=== PATIENT | male | born 1950 | race American Indian/Alaskan Native ===

== ENCOUNTER 2019-04-10 06:34 | Day surgery (SDC) | payer BC, OTHER, MEDICARE ==
[~2019-04-10 06:34] MED LIST: Dextrose 5%-0.45% NaCl 1,000 ML IV SCH; Midazolam 1 MG/ML 2 ML SDV ONE; Sodium Chloride 0.9% 10 ML Syringe FLUSH PRN; fentaNYL 100 MCG/2 ML SDV ONE
[2019-04-10] MEDS ORDERED: fentaNYL 100 MCG/2 ML SDV IV ONE ×3 (06:35→07:48)
[2019-04-10] MEDS ORDERED: Midazolam 1 MG/ML 2 ML SDV IV ONE ×7 (06:35→07:57)
[2019-04-10 10:38] VITALS: BP 120/77; PULSE 78
--- NOTE | 2019-04-10 14:41 | OR ---
DATE: 04/10/2019 PROCEDURE PERFORMED: Total colonoscopy, NBI, and cold snare polypectomy. INSTRUMENT USED: CF-TO476P Olympus video colonoscope. PREMEDICATIONS: Fentanyl 100 mcg intravenous, Versed 3.5 mg intravenous. Nasal O2 cannula. The procedure was done under pulse oximetry, BP recording, and yield loss inspector. INDICATIONS: The patient with previous colonic tubular adenoma and recently detected iron-deficiency anemia. Colonoscopic examination is done for detection of any polypoid lesions and removal, endoscopic hemostasis therapy if needed. DESCRIPTION OF PROCEDURE: Initial rectal exam was unremarkable. Rigid anoscopy was normal. The colonoscope was passed with ease up to the ileocecal area. Photographs were taken of the normal-appearing cecum, identified by landmarks of appendiceal orifice and double-bulged ileocecal folds. No bleeding was noted from any of the visualized areas at the commencement of the examination. Bowel preparation was found to be adequate, [place] scale 2 in all the regions. There was considerable amount of liquid fecal material that had to be aspirated. No stricture, no vascular ectasia, and no large isolated ulcerations seen. No evidence of diffuse inflammatory bowel disease in the form of friability, contact bleeding, or ulcerations. Probing the proximal sides of folds and flexures using adequate distention and clearing up the stool material, withdrawal of the scope was made. In the distal descending colon, 5 mm sized benign-appearing polyp was noted, NBI views were obtained, cold snare polypectomy was done, the tissue was retrieved, and sent for histopathology. No bleeding was noted from any of the visualized areas at the completion of examination. IMPRESSION: Descending colon polyp. The patient tolerated the procedure well. [facility] /[id number]
--- NOTE | 2019-04-15 10:06 | LETTER ---
04/10/2019 Ava Lipscomb MD [address] [place] [address] RE: RAUL MAY : [address] Lipscomb: Mr. Raul May had colonoscopic examination done this morning and he tolerated the procedure well. I herewith send a copy of the endoscopy note and photographs for your review. Thank you. Sincerely, [facility] /[id number]
== END 2019-04-10 10:12 | disposition home or self-care (01) ==
LOC: DL.ENDO 06:34
PROVIDERS: ATTEND Internal Medicine Gastroenterology
DX: D50.9 Iron deficiency anemia, unspecified (principal); D12.4 Benign neoplasm of descending colon; K21.9 Gastro-esophageal reflux disease without esophagitis; E78.5 Hyperlipidemia, unspecified; E11.9 Type 2 diabetes mellitus without complications; J45.909 Unspecified asthma, uncomplicated; E66.09 Other obesity due to excess calories; Z68.31 Body mass index [BMI] 31.0-31.9, adult; Z86.010 Personal history of colon polyps; Z79.84 Long term (current) use of oral hypoglycemic drugs
CPT/HCPCS: 45385; J2250; J3010; J7042

== ENCOUNTER 2022-11-15 01:12 | Inpatient (IN) | payer BC, OTHER ==
[~2022-11-15 01:12] MED LIST changes: -Dextrose 5%-0.45% NaCl 1,000 ML IV SCH; -Midazolam 1 MG/ML 2 ML SDV ONE; -fentaNYL 100 MCG/2 ML SDV ONE
[2022-11-15] MEDS ORDERED: Acetaminophen 325 MG Tab PO ONE (01:19)
[2022-11-15] MEDS ORDERED: Lactated Ringers 1,000 ML IV ONE (01:22)
[2022-11-15] MEDS ORDERED: cefTRIAXone 1 GM Vial IM ONE (01:23)
[2022-11-15 01:25] LABS: BASOPHILS PERCENT AUTO 0.2 % (0.0-1.0); EOSINOPHILS PERCENT AUTO 0.6 % (1.0-3.0); LYMPHOCYTES PERCENT AUTO 7.3 % (20.5-50.1); MEAN CORPUSCULAR HEMOGLOBIN 27.6 pg (27.0-34.0); MEAN CORPUSCULAR HGB CONC 33.3 g/dL (33.0-35.0); MEAN CORPUSCULAR VOLUME 82.9 fL (80-100); MONOCYTES PERCENT AUTO 5.1 % (2-8); NEUTROPHILS PERCENT AUTO 86.8 % (42.2-75.2); PLATELET COUNT,PLT 402 10^3/uL (150-450); RED BLOOD CELL COUNT 4.34 10^6/uL (4.6-6.2); WHITE BLOOD CELL COUNT,WBC 19.3 10^3/uL (5.0-10.0)
[2022-11-15] MEDS ORDERED: Levofloxacin/Dextrose 5%-Water 750 MG in Premix Bag 1 BAG IV ONE (01:29)
[2022-11-15] MEDS ORDERED: cefTRIAXone 1 GM Vial IVPUSH ONE (01:43)
[2022-11-15 01:49] LABS: PROTHROMBIN TIME 10.5 SEC (9.0-12.0)
[2022-11-15 01:52] LABS: A/G RATIO 0.7; ALANINE AMINOTRANSFERASE,ALT 29 U/L (16-63); ALBUMIN 3.6 g/dL (3.4-5.0); ALKALINE PHOSPHATASE 100 U/L (46-116); ANION GAP 12.2 mEq/L (7-13); ASPARTATE AMNIOTRANSFERASE,AST 21 U/L (15-37); BILIRUBIN TOTAL 0.6 mg/dL (0.2-1.0); BLOOD UREA NITROGEN,BUN 13 mg/dL (7-18); BUN/CREATININE RATIO 11.8 (No establ ref range); CALCIUM 8.6 mg/dL (8.5-10.1); CARBON DIOXIDE,CO2 26 mmol/L (21-32); CHLORIDE,CL 94 mmol/L (98-107); GLUCOSE RANDOM 171 mg/dL (70-99); MAGNESIUM 1.5 mg/dL (1.8-2.4); POTASSIUM,K 4.2 mmol/L (3.5-5.1); PROTEIN TOTAL,TP 8.5 g/dL (6.4-8.2); SODIUM,NA 128 mmol/L (136-145)
[2022-11-15 01:53] LABS: ESTIMATED GFR 71 mL/min (>=60); LACTIC ACID 1.6 mmol/L (0.4-2.0)
[2022-11-15 02:05] LABS: B-TYPE NATRIURETIC PEPTIDE,BNP 6 pg/ml (0-100)
[2022-11-15 02:27] LABS: APPEARANCE,URINE CLEAR (CLEAR); BILIRUBIN,URINE NEGATIVE (NEGATIVE); COLOR,URINE YELLOW (YELLOW); GLUCOSE,URINE NEGATIVE (NEGATIVE); KETONES,URINE NEGATIVE (NEGATIVE); LEUKOCYTE ESTERASE,URINE NEGATIVE (NEGATIVE); NITRITE,URINE NEGATIVE (NEGATIVE); OCCULT BLOOD,URINE TRACE-INTACT (NEGATIVE); PH,URINE 7.5 (5.0-9.0); PROTEIN,URINE NEGATIVE (NEGATIVE)
[2022-11-15 02:28] LABS: BACTERIA,URINE FEW /HPF (0-FEW/HPF); EPITHELIAL CELLS,URINE RARE /HPF (NOT SEEN); RBC,URINE 0-5 /HPF (0-5); WBC,URINE NOT SEEN /HPF (0-5/HPF)
[2022-11-15] MEDS ORDERED: Ondansetron 4 MG Tab.DIS PO PRN (03:15)
[2022-11-15] MEDS ORDERED: Albuterol 6.7 GM Inhaler INH PRN (03:20)
[2022-11-15] MEDS: Albuterol 0.083% 2.5 MG/3 ML Neb Soln NEB PRN ×3 (06:07→21:06)
[2022-11-15] MEDS: Omeprazole 20 MG Cap.CR PO SCH (06:07)
[2022-11-15] MEDS ORDERED: Magnesium Oxide 400 MG Tab PO ONE (07:10)
[2022-11-15] MEDS ORDERED: 50% Dextrose in Water 50 ML Syringe IVPUSH PRN (07:42)
[2022-11-15] MEDS ORDERED: Glucagon,Human Recombinant 1 MG Vial IM PRN (07:42)
[2022-11-15] MEDS: Enoxaparin 40 MG/0.4 ML Syringe SUBCUT SCH (08:00)
[2022-11-15] MEDS ORDERED: metFORMIN 500 MG Tab PO SCH (08:00)
[2022-11-15] MEDS: Fluticasone NASAL Spray 16 GM Bottle NASBOTH SCH (08:00)
[2022-11-15] MEDS ORDERED: Insulin Lispro 100 Units/ML 3 ML Vial SUBCUT PRN (08:00)
[2022-11-15] MEDS: Multivitamin Tab PO SCH (08:01)
[2022-11-15] MEDS ORDERED: Iopamidol 755 Mg/ML 100 ML Bottle IVPUSH ONE (08:13)
[2022-11-15] MEDS: guaiFENesin 600 MG Tab.ER PO SCH ×2 (11:00→20:58)
[2022-11-15] MEDS: Acetaminophen 325 MG Tab PO PRN (12:22)
[2022-11-15] MEDS ORDERED: Magnesium Sulfate/Water 2 GM in Premix Bag 1 BAG IV ONE (16:56)
[2022-11-15] MEDS: Montelukast 10 MG Tab PO SCH (20:57)
[2022-11-16] MEDS: Albuterol 0.083% 2.5 MG/3 ML Neb Soln NEB PRN ×6 (02:00→23:01)
[2022-11-16] MEDS: Omeprazole 20 MG Cap.CR PO SCH (05:08)
[2022-11-16] MEDS ORDERED: Levofloxacin/Dextrose 5%-Water 750 MG in Premix Bag 1 BAG IV SCH (06:00)
[2022-11-16 06:35] LABS: BASOPHILS PERCENT AUTO 0.1 % (0.0-1.0); EOSINOPHILS PERCENT AUTO 0.5 % (1.0-3.0); HEMATOCRIT 33.7 % (40.0-54.0); LYMPHOCYTES PERCENT AUTO 8.9 % (20.5-50.1); MEAN CORPUSCULAR HEMOGLOBIN 27.5 pg (27.0-34.0); MEAN CORPUSCULAR HGB CONC 32.6 g/dL (33.0-35.0); MEAN CORPUSCULAR VOLUME 84.3 fL (80-100); MONOCYTES PERCENT AUTO 5.6 % (2-8); NEUTROPHILS PERCENT AUTO 84.9 % (42.2-75.2); PLATELET COUNT,PLT 383 10^3/uL (150-450); WHITE BLOOD CELL COUNT,WBC 20.4 10^3/uL (5.0-10.0)
[2022-11-16 06:55] LABS: ANION GAP 14.9 mEq/L (7-13); CALCIUM 8.3 mg/dL (8.5-10.1); CREATININE 0.89 mg/dL (0.70-1.30); EST CRCL DRUG DOSING (CG) 75.02 mL/min; MAGNESIUM 1.9 mg/dL (1.8-2.4); POTASSIUM,K 3.9 mmol/L (3.5-5.1)
[2022-11-16] MEDS: Insulin Lispro 100 Units/ML 3 ML Vial SUBCUT SCH ×3 (08:19→17:51)
[2022-11-16] MEDS: Enoxaparin 40 MG/0.4 ML Syringe SUBCUT SCH (08:21)
[2022-11-16] MEDS: Magnesium Oxide 400 MG Tab PO SCH (08:21)
[2022-11-16] MEDS: Fluticasone NASAL Spray 16 GM Bottle NASBOTH SCH (08:22)
[2022-11-16] MEDS: guaiFENesin 600 MG Tab.ER PO SCH ×2 (08:22→20:45)
[2022-11-16] MEDS: Multivitamin Tab PO SCH (08:22)
[2022-11-16] MEDS: Acetaminophen 325 MG Tab PO PRN (16:16)
[2022-11-16] MEDS: Montelukast 10 MG Tab PO SCH (20:45)
[2022-11-16] MEDS ORDERED: Mometasone Furoate Powder 220 MCG/Puff 14 Dose Inhaler INH SCH (21:00)
[2022-11-17] MEDS ORDERED: diphenhydrAMINE 25 MG Tab PO PRN (02:12)
[2022-11-17] MEDS: Omeprazole 20 MG Cap.CR PO SCH (05:41)
[2022-11-17 06:31] LABS: BASOPHILS PERCENT AUTO 0.3 % (0.0-1.0); EOSINOPHILS PERCENT AUTO 1.4 % (1.0-3.0); LYMPHOCYTES PERCENT AUTO 10.5 % (20.5-50.1); MEAN CORPUSCULAR HEMOGLOBIN 27.4 pg (27.0-34.0); MEAN CORPUSCULAR HGB CONC 33.3 g/dL (33.0-35.0); MEAN CORPUSCULAR VOLUME 82.3 fL (80-100); MONOCYTES PERCENT AUTO 6.7 % (2-8); NEUTROPHILS PERCENT AUTO 81.1 % (42.2-75.2); PLATELET COUNT,PLT 402 10^3/uL (150-450); RED BLOOD CELL COUNT 4.01 10^6/uL (4.6-6.2); WHITE BLOOD CELL COUNT,WBC 14.7 10^3/uL (5.0-10.0)
[2022-11-17 06:54] LABS: ANION GAP 17.2 mEq/L (7-13); CALCIUM 8.3 mg/dL (8.5-10.1); CREATININE 0.76 mg/dL (0.70-1.30); EST CRCL DRUG DOSING (CG) 87.86 mL/min; MAGNESIUM 1.8 mg/dL (1.8-2.4); POTASSIUM,K 4.2 mmol/L (3.5-5.1)
[2022-11-17] MEDS: Insulin Lispro 100 Units/ML 3 ML Vial SUBCUT SCH (08:33)
[2022-11-17] MEDS: Enoxaparin 40 MG/0.4 ML Syringe SUBCUT SCH (08:36)
[2022-11-17] MEDS: Fluticasone NASAL Spray 16 GM Bottle NASBOTH SCH (08:38)
[2022-11-17] MEDS: Multivitamin Tab PO SCH (08:39)
[2022-11-17] MEDS: Magnesium Oxide 400 MG Tab PO SCH (08:39)
[2022-11-17] MEDS: guaiFENesin 600 MG Tab.ER PO SCH (08:50)
[2022-11-17] MEDS ORDERED: Levofloxacin 500 MG Tab PO SCH (09:00)
[2022-11-17 11:03] VITALS: BP 107/71; PULSE 104
== END 2022-11-17 11:00 | disposition home or self-care (01) | DRG 720 ==
LOC: DL.ED 01:12 → UNDOADMIN 02:45 → DL.MS 02:45 → UNDOADMIN 03:07 → DL.MS 03:07
PROVIDERS: ADMIT Emergency Medicine; ATTEND Emergency Medicine
DX: A41.9 Sepsis, unspecified organism (principal); J18.9 Pneumonia, unspecified organism; J44.0 Chronic obstructive pulmonary disease with (acute) lower respiratory infection; E83.42 Hypomagnesemia; H40.9 Unspecified glaucoma; H54.7 Unspecified visual loss; K59.09 Other constipation; E66.9 Obesity, unspecified; M85.80 Other specified disorders of bone density and structure, unspecified site; D50.9 Iron deficiency anemia, unspecified; K21.9 Gastro-esophageal reflux disease without esophagitis; I12.9 Hypertensive chronic kidney disease with stage 1 through stage 4 chronic kidney disease, or unspecified chronic kidney disease; E11.22 Type 2 diabetes mellitus with diabetic chronic kidney disease; N18.9 Chronic kidney disease, unspecified; D63.1 Anemia in chronic kidney disease; Z98.49 Cataract extraction status, unspecified eye; Z79.899 Other long term (current) drug therapy; Z79.51 Long term (current) use of inhaled steroids; Z87.11 Personal history of peptic ulcer disease; Z86.010 Personal history of colon polyps; Z88.6 Allergy status to analgesic agent; Z98.890 Other specified postprocedural states; Z68.29 Body mass index [BMI] 29.0-29.9, adult
CPT/HCPCS: 36415; 71045; 71275; 80048; 80053; 81001; 82947; 83605; 83735; 83880; 84484; 85025; 85379; 85610; 87040; 87804; 93010; 94010; 94060; 94667; 94668; 96365; 96375; 99284; 99285-25; A9270-GY; J0696; J1650; J1815-GY; J1956; J3475; J7120; J7613-GY; Q9967; U0002

== ENCOUNTER 2023-11-14 21:02 | Emergency (ER) | payer BC, MEDICARE, OTHER ==
[2023-11-14] MEDS: Albuterol/Ipratropium 3.0-0.5 MG/3 ML Neb Soln NEB ONE (22:16)
[2023-11-14 22:35] LABS: BASOPHILS PERCENT AUTO 0.6 % (0.0-1.0); EOSINOPHILS PERCENT AUTO 4.4 % (1.0-3.0); HEMATOCRIT 37.2 % (40.0-54.0); HEMOGLOBIN 12.2 g/dL (14.0-18.0); LYMPHOCYTES PERCENT AUTO 21.8 % (20.5-50.1); MEAN CORPUSCULAR HEMOGLOBIN 27.7 pg (27.0-34.0); MEAN CORPUSCULAR HGB CONC 32.8 g/dL (33.0-35.0); MEAN CORPUSCULAR VOLUME 84.4 fL (80-100); MONOCYTES PERCENT AUTO 8.3 % (2-8); NEUTROPHILS PERCENT AUTO 64.9 % (42.2-75.2); PLATELET COUNT,PLT 399 10^3/uL (150-450); RED BLOOD CELL COUNT 4.41 10^6/uL (4.6-6.2); WHITE BLOOD CELL COUNT,WBC 12.5 10^3/uL (5.0-10.0)
[2023-11-14 22:56] LABS: A/G RATIO 0.8; ALBUMIN 3.6 g/dL (3.4-5.0); ANION GAP 14.5 mEq/L (7-13); BILIRUBIN TOTAL 0.5 mg/dL (0.2-1.0); BUN/CREATININE RATIO 16.2 (No establ ref range); CREATININE 1.17 mg/dL (0.70-1.30); EST CRCL DRUG DOSING (CG) 54.4 mL/min; POTASSIUM,K 4.5 mmol/L (3.5-5.1); PROTEIN TOTAL,TP 8.3 g/dL (6.4-8.2)
[2023-11-14 23:27] VITALS: BP 133/73; PULSE 88
[2023-11-14] MEDS: predniSONE 20 MG Tab PO ONE (23:37)
[2023-11-14] MEDS: Azithromycin 250 MG Tab PO ONE (23:37)
[2023-11-14] MEDS: Amoxicillin/Clavulanate K 875-125 MG Tab PO ONE (23:42)
== END 2023-11-14 23:49 | disposition home or self-care (01) ==
LOC: DL.ED 21:02
DX: J18.9 Pneumonia, unspecified organism (principal); I12.9 Hypertensive chronic kidney disease with stage 1 through stage 4 chronic kidney disease, or unspecified chronic kidney disease; N18.9 Chronic kidney disease, unspecified; J45.909 Unspecified asthma, uncomplicated; E78.00 Pure hypercholesterolemia, unspecified; E11.9 Type 2 diabetes mellitus without complications; Z88.8 Allergy status to other drugs, medicaments and biological substances; Z79.899 Other long term (current) drug therapy; Z87.891 Personal history of nicotine dependence
CPT/HCPCS: 36415; 71045; 80053; 85025; 87081; 87430; 87804; 94640; 99284; A9270-GY; J7512; J7620-GY; U0002